=== PATIENT | male | born 1990 | race Caucasian/White ===

== ENCOUNTER 2018-10-03 21:54 | Emergency (ER) | payer SELFPAY ==
[~2018-10-03] VITALS: Ht 185.4 cm; Wt 133.4 kg
[2018-10-03 21:56] VITALS: Ht 185.4 cm; Wt 133.4 kg
[2018-10-04 00:11] VITALS: BP 138/75
== END 2018-10-04 00:11 | disposition home or self-care (01) ==
LOC: ED 21:54
DX: S61.210A Laceration without foreign body of right index finger without damage to nail, initial encounter (principal); S61.212A Laceration without foreign body of right middle finger without damage to nail, initial encounter; W26.8XXA Contact with other sharp object(s), not elsewhere classified, initial encounter; Y93.89 Activity, other specified; Y92.89 Other specified places as the place of occurrence of the external cause; Y99.8 Other external cause status
CPT/HCPCS: 90715; J2001